=== PATIENT | male | born 1975 | race Caucasian/White ===

== ENCOUNTER 2018-09-28 18:00 | Emergency (ER) | payer OTHER ==
[2018-09-28] MEDS ORDERED: methylPREDNISolone SOD SUCCI 125 MG/2 ML VIAL IM ONE (20:09)
--- NOTE | 2018-09-28 20:28 | ED ---
Skin/Abscess/FB HPI - General Chief complaint: Skin/Abscess/Foreign Body Stated complaint: Wounds on Wrist Time Seen by Provider: 09/28/18 19:43 Source: patient Mode of arrival: ambulatory Limitations: no limitations - History of Present Illness Initial comments: Patient is a 42-year-old male presents to the emergency department with rashes on both of his lower arms 3 days. Patient states he had similar rash for about 2 weeks, the rash improved for a few days and then returned 3 days ago. He describes the rash as "red, itchy, and with sores that are oozing." Patient works doing oil changes and often uses a hand scrub that he recently found out contained peanuts which she is ALLERGIC to. Patient cannot think of anything else that could be caused the rash. Patient denies any other symptoms. - Related Data Previous Rx's Medication Instructions Recorded Cephalexin [Keflex] 500 mg PO Q6HR 7 Days #28 cap 09/28/18 methylPREDNISolone [Medrol Dose 4 mg PO DIRECTED #1 pack 09/28/18 Pack] Allergies Allergy/AdvReac Type Severity Reaction Status Date / Time No Known Allergies Allergy Verified 09/28/18 18:28 Review of Systems ROS Statement: Those systems with pertinent positive or pertinent negative responses have been documented in the HPI. ROS Other: All systems not noted in ROS Statement are negative. Past Medical History Past Medical History: No Reported History History of Any Multi-Drug Resistant Organisms: None Reported Past Surgical History: Orthopedic Surgery Past Psychological History: No Psychological Hx Reported Smoking Status: Current every day smoker Past Alcohol Use History: Occasional Past Drug Use History: None Reported General Exam - General Exam Comments Initial Comments: GENERAL: Well-appearing, well-nourished and in no acute distress. HEAD: Atraumatic, normocephalic. EYES: Pupils equal round and reactive to light, extraocular movements intact, sclera anicteric, conjunctiva are normal. ENT: TMs normal, nares patent, oropharynx clear without exudates. Moist mucous membranes. NECK: Normal range of motion, supple without lymphadenopathy or JVD. LUNGS: Breath sounds clear to auscultation bilaterally and equal. No wheezes rales or rhonchi. HEART: Regular rate and rhythm without murmurs, rubs or gallops. ABDOMEN: Soft, nontender, normoactive bowel sounds. No guarding, no rebound. No masses appreciated. : Deferred EXTREMITIES: Normal range of motion, no pitting or edema. No clubbing or cyanosis. NEUROLOGICAL: Cranial nerves II through XII grossly intact. Normal speech, normal gait. PSYCH: Normal mood, normal affect. SKIN: There is a erythematous, scaly rash on both lower arms that is oozing fluid from the wrist up to the elbow area, bilateral. No pain with palpitation. Limitations: no limitations Course Vital Signs 09/28/18 09/28/18 18:25 20:45 Temperature 98.2 F 97.6 F Pulse Rate 95 92 Respiratory 18 16 Rate Blood Pressure 166/91 151/97 O2 Sat by Pulse 98 99 Oximetry Medical Decision Making - Medical Decision Making Patient is a 42-year-old male presenting with bilateral lower arm rashes 3 days. Describes the rash as very itchy and red with oozing sores. Patient states he's never had a rash this bad before. Patient states there is a hand scrub at work that contains peanuts which she is ALLERGIC to. On exam both his lower arms from the wrist to the elbow is erythematous, scaly rash with oozing sores consistent with cellulitis from possible ALLERGIC reaction/dermatitis. Patient denies any fevers. Patient will be started on antibiotics and steroid treatment. Case discussed with Dr. Chapin. Patient will be discharged home after steroid injection. Disposition Clinical Impression: Contact dermatitis, Cellulitis Disposition: HOME SELF-CARE Condition: Stable Instructions (If sedation given, give patient instructions): Cellulitis (ED), Acute Rash (ED) Additional Instructions: Please return to the Emergency Department if symptoms worsen or any other concerns. Start steroid tomorrow. Start antibiotics tonight. Follow-up with PCP and 1-3 days if rash continues. Prescriptions: Cephalexin [Keflex] 500 mg PO Q6HR 7 Days #28 cap methylPREDNISolone [Medrol Dose Pack] 4 mg PO DIRECTED #1 pack Is patient prescribed a controlled substance at d/c from ED?: No Referrals: None,Stated [Primary Care Provider] - 1-2 days
[2018-09-28 20:49] VITALS: BP 151/97; PULSE 92; RESP 16; TEMP 97.6
== END 2018-09-28 20:52 | disposition home or self-care (01) ==
LOC: EC 18:00
DX: L25.4 Unspecified contact dermatitis due to food in contact with skin (principal); L03.114 Cellulitis of left upper limb; L03.113 Cellulitis of right upper limb; F17.200 Nicotine dependence, unspecified, uncomplicated; Z91.010 Allergy to peanuts
CPT/HCPCS: 99282; 96372; J2930

== ENCOUNTER 2018-11-09 09:19 | Emergency (ER) | payer OTHER ==
[2018-11-09 09:31] VITALS: RESP 18
[2018-11-09] MEDS ORDERED: SODIUM CHLORIDE 0.9% 1,000 ML IV STA (09:43)
[2018-11-09] MEDS ORDERED: SODIUM CHLORIDE 0.9% 500 ML 500 ML IV STA (09:43)
[2018-11-09 10:23] LABS: Basophils % (A) 1 %; Eosinophils # (A) 0.1 k/uL (0-0.7); Eosinophils % (A) 2 %; HCT 45.5 % (39.0-53.0); HGB 14.9 gm/dL (13.0-17.5); Lymphocytes # (A) 1.3 k/uL (1.0-4.8); Lymphocytes % (A) 30 %; MCH 31.5 pg (25.0-35.0); MCHC 32.7 g/dL (31.0-37.0); MCV 96.3 fL (80.0-100.0); Mean Platelet Volume 8.4; Monocytes # (A) 0.4 k/uL (0-1.0); Monocytes % (A) 8 %; Neutrophils # (A) 2.3 k/uL (1.3-7.7); Neutrophils % (A) 55 %; Platelet Count 144 k/uL (150-450); RBC 4.72 m/uL (4.30-5.90); WBC 4.2 k/uL (3.8-10.6)
--- NOTE | 2018-11-09 10:23 | CT ---
EXAMINATION TYPE: CT brain wo con DATE OF EXAM: 11/09/2018 COMPARISON: None HISTORY: Dizziness with history of prior CVA. CT DLP: 1123.[address] of the brain was performed. The ventricles, basal cisterns and sulci overlying the cerebral convexities demonstrate a normal appe arance. There is no evidence for intracranial hemorrhage or sulcal effacement. No mass effects are seen. Osseous calvarium is intact. If symptoms persist consider MRI as clinically warranted. IMPRESSION: 1. No acute intracranial process is seen at this time.
--- NOTE | 2018-11-09 10:28 | XR ---
EXAMINATION TYPE: XR chest 2V DATE OF EXAM: 11/09/2018 COMPARISON: None HISTORY: Chest pain TECHNIQUE: Frontal and lateral views of the chest are obtained. FINDINGS: There is no focal air space opacity. No evidence for pneumothorax. No pleural effusion. The cardiac silhouette size is within normal limits. The osseous structures are grossly intact. IMPRESSION: 1. No acute cardiopulmonary process.
[2018-11-09 10:34] LABS: INR 0.8 (<1.2); Prothrombin Time 9.4 sec (9.0-12.0)
[2018-11-09 10:39] LABS: ALT 23 U/L (21-72); AST 36 U/L (17-59); African American GFR (CKD) >90 (>60 ml/min/1.73 sqM); Albumin 4.5 g/dL (3.5-5.0); Alkaline Phosphatase 58 U/L (38-126); Anion Gap 10 mmol/L; Blood Urea Nitrogen 8 mg/dL (9-20); Calcium 8.9 mg/dL (8.4-10.2); Carbon Dioxide 23 mmol/L (22-30); Chloride 105 mmol/L (98-107); Glucose 243 mg/dL (74-99); Potassium 4.9 mmol/L (3.5-5.1); Sodium 138 mmol/L (137-145); Total Bilirubin 0.2 mg/dL (0.2-1.3); Total Protein 7.2 g/dL (6.3-8.2)
[2018-11-09 12:11] LABS: Appearance,Urine Clear (Clear); Bilirubin,Urine Negative (Negative); Blood,Urine Negative (Negative); Color,Urine Yellow; Glucose,Urine (UA) 3+ (Negative); Ketones,Urine Negative (Negative); Leukocyte Esterase,Urine Negative (Negative); Nitrite,Urine Negative (Negative); Protein,Urine Negative (Negative); Specific Gravity,Urine 1.008 (1.001-1.035); Urobilinogen,Urine <2.0 mg/dL (<2.0)
[2018-11-09 12:21] LABS: Amphetamine Screen,Urine Not Detected (NotDetected); Barbiturate Screen,Urine Not Detected (NotDetected); Benzodiazepines Screen,Urine Not Detected (NotDetected); Cocaine Screen,Urine Not Detected (NotDetected); Methadone Screen, Urine Not Detected (NotDetected); Opiate Screen,Urine Not Detected (NotDetected); Oxycodone Screen, Urine Not Detected (NotDetected); Phencyclidine Screen,Urine Not Detected (NotDetected); Tricyclic Antidepressant,Urine Not Detected (NotDetected); Urn Cannabinoid Scrn Not Detected (NotDetected)
[2018-11-09 12:58] VITALS: PULSE 78
[2018-11-09] MEDS ORDERED: amLODIPine 5 MG TAB PO STA (13:17)
--- NOTE | 2018-11-09 13:20 | ED ---
General Adult HPI - General Chief complaint: Dizziness Stated complaint: Dizziness Time Seen by Provider: 11/09/18 09:41 Source: patient, EMS Mode of arrival: EMS Limitations: no limitations - History of Present Illness Initial comments: 42-year-old male presenting for lightheaded when standing. Patient states that he's been drinking for the past day. Patient states he is lightheaded when he stands. He states this has been ongoing on and off for the past week. Patient doesn't chest painshortness of breath, leg swelling, hemoptysis. Denies any m colin hematochezia or diarrhea. Patient denies vomiting abdominal pain headache. Patient denies any neck stiffness visual changes. Patient has no other complaints. Patient states that he does work in warm conditions. Is not sure if this is associated. Patient states he has been drinking water. Upon arrival patient's blood pressures elevated he states he does have a history but does not take his medications he has no primary care provider. Patient states he used to take metformin for diabetes but has not had prescriptions for this to loss of insurance. Remaining review of systems negative on arrival patient appears well signs of acute distress. Severity scale (1-10): 4 - Related Data Previous Rx's Medication Instructions Recorded Cephalexin [Keflex] 500 mg PO Q6HR 7 Days #28 cap 09/28/18 methylPREDNISolone [Medrol Dose 4 mg PO DIRECTED #1 pack 09/28/18 Pack] metFORMIN HCL [Glucophage Xr] 500 mg PO DAILY 14 Days #14 tab 11/09/18 Allergies Allergy/AdvReac Type Severity Reaction Status Date / Time No Known Allergies Allergy Verified 11/09/18 09:32 Review of Systems ROS Statement: Those systems with pertinent positive or pertinent negative responses have been documented in the HPI. ROS Other: All systems not noted in ROS Statement are negative. Past Medical History Past Medical History: CVA/TIA, Diabetes Mellitus History of Any Multi-Drug Resistant Organisms: None Reported Past Surgical History: Orthopedic Surgery Additional Past Surgical History / Comment(s): right hand, left knee Past Psychological History: No Psychological Hx Reported Smoking Status: Current every day smoker Past Alcohol Use History: Occasional Past Drug Use History: None Reported General Exam - General Exam Comments Initial Comments: General: The patient is awake and alert, in no distress, and does not appear acutely ill. Eye: +3 mm pupils are equal, round and reactive to light, extra-ocular m ovements are intact. No nystagmus. There is normal conjunctiva bilaterally. No signs of icterus. Ears, nose, mouth and throat: There are moist mucous membranes and no oral lesions. Neck: The neck is supple, there is no tenderness or JVD. Cardiovascular: There is a regular rate and rhythm. No murmur, rub or gallop is appreciated. Respiratory: Lungs are clear to auscultation, respirations are non-labored, breath sounds are equal. No wheezes, stridor, rales, or rhonchi. Gastrointestinal: Soft, non-distended, non-tender abdomen without masses or organomegaly noted. There is no rebound or guarding present. No CVA tenderness. Bowel sounds are unremarkable. Musculoskeletal: Normal ROM, no tenderness. Strength 5/5. Sensation intact. Radial and DP pulses equal bilaterally 2+. Neurological: A&O x 3. CN II-XII intact,memory intact to immediately, intermediate and termite technician recall. Able to follow simple verbal. Able to name a common object (pen). High quality, labial (pa) and lingual (la) speech. Low q uality posterior pharynx/larynx (ga) voice sounds. Able to express general knowledge (days in a week). No hemineglect or inattention noted. Finger agnosia (-) and spatially oriented (identified L index finger touched R shoulder with L index finger). Light touch and temperature sensation present over the face, chest, abdomen, back, UE bilaterally, and LE bilaterally. Able to localize point during point localization b/l and extinction. No visible bulk atrophy, hypertrophy, fasciculations, or myoclonus of the UE or LE b/l. Full PROM in UE and LE b/l. Bilateral muscle strength 5/5 for the following muscles: deltoid, biceps, triceps, brachioradialis, wrist extensors/flexor, hip flexor, hip abduc tors/adductors, hamstrings, quadriceps, feet dorsiflexors/plantar flexors. Finger to nose, finger to the examiners finger, and heel to cummins coordinated and accurate b/l. Coordinated and even demonstration of hand flip, finger to thumb, and toe tap b/l.Gait is coordinated and even in stride with tandem, toe and heel walk. Maintains balance with monopedal stance. (-) Romberg. (-) pronator drift. No nuchal rigidity. (-) Brudzinskis and Kernig signs . Skin: Skin is warm and dry and no rashes or lesions are noted. (-) Homans. No LE edema or pain to palpatin. Psychiatric: Cooperative, appropriate mood & affect, normal judgment. Limitations: no limitations Course Vital Signs 11/09/18 11/09/18 11/09/18 09:22 09:36 11:51 Temperature 97.2 F L 98.7 F Pulse Rate 96 Pulse Rate [ 98 Hospitality Specialist ] Pulse Rate [ 94 79 Sitting Hospitality Specialist] Pulse Rate [ 115 H 79 Standing Hospitality Specialist ] Pulse Rate [ 86 Supine Hospitality Specialist] Respiratory 18 18 Rate Blood Pressure 166/103 Blood Pressure 149/98 [Sitting] Blood Pressure 143/98 145/85 [Standing] Blood Pressure 143/90 [Supine] O2 Sat by Pulse 98 Oximetry 11/09/18 11/09/18 11/09/18 12:00 12:56 14:02 Temperature 97.4 F L 97.5 F L 97.6 F Pulse Rate 78 78 Pulse Rate [ Hospitality Specialist ] Pulse Rate [ Sitting Hospitality Specialist] Pulse Rate [ 86 78 Standing Hospitality Specialist ] Pulse Rate [ Supine Hospitality Specialist] Respiratory 18 18 18 Rate Blood Pressure 149/101 143/87 Blood Pressure [Sitting] Blood Pressure [Standing] Blood Pressure 144/81 149/101 [Supine] O2 Sat by Pulse 96 Oximetry EKG Findings - EKG Comments: EKG Findings:: A 12-lead EKG was performed and shows the following: Rate is 93bpm, and rhythm is normal sinus. There are normal QRS complexes and normal R- wave progression. ST segments have no elevation or depression, and WV segments appear normal. WV interval 154 ms, QRS duration 90 ms, QT/QTC 366/[address] elevation or depression. Medical Decision Making - Medical Decision Making Very well apppearing 42-year-old male presenting for lightheadedness with standing. Positive orthostatics increase of heart rate of 90 bpm from sitting to standing. Patient is intoxicated alcohol of 0.93. Smells of alcohol. Patient is given IV fluids. Patient's lactate elevated feels is secondary to dehydration. Patient's lips appear dry. EKG no acute findings consistent with acute coronary syndrome. Troponin negative. Chest x-ray within normal limits. Lungs clear to auscultation no lower extremity swelling. Patient has no focal neurological deficits. Patient is no ataxia. Patient states that is lightheaded is not a dizziness. No dizziness with ranging of the head. No nuchal irritation signs. CT was obtained and patient history of previous cer ebral stroke. Negative for acute process. Patient denies chest pain or shortness of breath. Patient states his improvement of symptoms with IV fluids. At this time provided patient for metformin as it had a previous prescription for 500 mg by mouth daily. He states he has not had any prescriptions for the pressure but has had elevations in the past. I did give patient a resource for free [facility] for [facility] of chronic health issues. Gastric is my attending provider Dr. Elaine is agreeable to plan discharge at this time. Return parameters were discussed with patient prior to discharge. - Lab Data Result diagrams: 11/09/18 09:30 11/09/18 09:30 Lab Results 11/09/18 11/09/18 11/09/18 Range/Units 09:30 09:30 09:30 WBC 4.2 (3.8-10.6) k/uL RBC 4.72 (4.30-5.90) m/uL Hgb 14.9 (13.0-17.5) gm/dL Hct 45.5 (39.0-53.0) % MCV 96.3 (80.0-100.0) fL MCH 31.5 (25.0-35.0) pg MCHC 32.7 (31.0-37.0) g/dL RDW 15.0 (11.5-15.5) % Plt Count 144 L (150-450) k/uL Neutrophils % 55 % Lymphocytes % 30 % Monocytes % 8 % Eosinophils % 2 % Basophils % 1 % Neutrophils # 2.3 (1.3-7.7) k/uL Lymphocytes # 1.3 (1.0-4.8) k/uL Monocytes # 0.4 (0-1.0) k/uL Eosinophils # 0.1 (0-0.7) k/uL Basophils # 0.0 (0-0.2) k/uL PT 9.4 (9.0-12.0) sec INR 0.8 (<1.2) Sodium 138 (137-145) mmol/L Potassium 4.9 (3.5-5.1) mmol/L Chloride 105 (98-107) mmol/L Carbon Dioxide 23 (22-30) mmol/L Anion Gap 10 mmol/L BUN 8 L (9-20) mg/dL Creatinine 0.64 L (0.66-1.25) mg/dL Est GFR (CKD-EPI)AfAm >90 (>60 ml/min/1.73 sqM) Est GFR (CKD-EPI)NonAf >90 (>60 ml/min/1.73 sqM) Glucose 243 H (74-99) mg/dL Lactic Ac Sepsis Rflx Plasma Lactic Acid Kenneth (0.7-2.0) mmol/L Calcium 8.9 (8.4-10.2) mg/dL Total Bilirubin 0.2 (0.2-1.3) mg/dL AST 36 (17-59) U/L ALT 23 (21-72) U/L Alkaline Phosphatase 58 (38-126) U/L Troponin I (0.000-0.034) ng/mL Total Protein 7.2 (6.3-8.2) g/dL Albumin 4.5 (3.5-5.0) g/dL Urine Color Urine Appearance (Clear) Urine pH (5.0-8.0) Ur Specific [place] (1.001-1.035) Urine Protein (Negative) Urine Glucose (UA) (Negative) Urine Ketones (Negative) Urine Blood (Negative) Urine Nitrite (Negative) Urine Bilirubin (Negative) Urine Urobilinogen (<2.0) mg/dL Ur Leukocyte Esterase (Negative) Urine Opiates Screen (NotDetected) Ur Oxycodone Screen (NotDetected) Urine Methadone Screen (NotDetected) Ur Propoxyphene Screen (NotDetected) Ur Barbiturates Screen (NotDetected) U Tricyclic Antidepress (NotDetected) Ur Phencyclidine Scrn (NotDetected) Ur Amphetamines Screen (NotDetected) U Methamphetamines Scrn (NotDetected) U Benzodiazepines Scrn (NotDetected) Urine Cocaine Screen (NotDetected) U Marijuana (THC) Screen (NotDetected) Serum Alcohol mg/dL 11/09/18 11/09/18 11/09/18 Range/Units 09:30 09:30 10:37 WBC (3.8-10.6) k/uL RBC (4.30-5.90) m/uL Hgb (13.0-17.5) gm/dL Hct (39.0-53.0) % MCV (80.0-100.0) fL MCH (25.0-35.0) pg MCHC (31.0-37.0) g/dL RDW (11.5-15.5) % Plt Count (150-450) k/uL Neutrophils % % Lymphocytes % % Monocytes % % Eosinophils % % Basophils % % Neutrophils # (1.3-7.7) k/uL Lymphocytes # (1.0-4.8) k/uL Monocytes # (0-1.0) k/uL Eosinophils # (0-0.7) k/uL Basophils # (0-0.2) k/uL PT (9.0-12.0) sec INR (<1.2) Sodium (137-145) mmol/L Potassium (3.5-5.1) mmol/L Chloride (98-107) mmol/L Carbon Dioxide (22-30) mmol/L Anion Gap mmol/L BUN (9-20) mg/dL Creatinine (0.66-1.25) mg/dL Est GFR (CKD-EPI)AfAm (>60 ml/min/1.73 sqM) Est GFR (CKD-EPI)NonAf (>60 ml/min/1.73 sqM) Glucose (74-99) mg/dL Lactic Ac Sepsis Rflx Y Plasma Lactic Acid Kenneth 2.1 H* (0.7-2.0) mmol/L Calcium (8.4-10.2) mg/dL Total Bilirubin (0.2-1.3) mg/dL AST (17-59) U/L ALT (21-72) U/L Alkaline Phosphatase (38-126) U/L Troponin I <0.012 (0.000-0.034) ng/mL Total Protein (6.3-8.2) g/dL Albumin (3.5-5.0) g/dL Urine Color Urine Appearance (Clear) Urine pH (5.0-8.0) Ur Specific [place] (1.001-1.035) Urine Protein (Negative) Urine Glucose (UA) (Negative) Urine Ketones (Negative) Urine Blood (Negative) Urine Nitrite (Negative) Urine Bilirubin (Negative) Urine Urobilinogen (<2.0) mg/dL Ur Leukocyte Esterase (Negative) Urine Opiates Screen (NotDetected) Ur Oxycodone Screen (NotDetected) Urine Methadone Screen (NotDetected) Ur Propoxyphene Screen (NotDetected) Ur Barbiturates Screen (NotDetected) U Tricyclic Antidepress (NotDetected) Ur Phencyclidine Scrn (NotDetected) Ur Amphetamines Screen (NotDetected) U Methamphetamines Scrn (NotDetected) U Benzodiazepines Scrn (NotDetected) Urine Cocaine Screen (NotDetected) U Marijuana (THC) Screen (NotDetected) Serum Alcohol mg/dL 11/09/18 11/09/18 Range/Units 11:55 11:55 WBC (3.8-10.6) k/uL RBC (4.30-5.90) m/uL Hgb (13.0-17.5) gm/dL Hct (39.0-53.0) % MCV (80.0-100.0) fL MCH (25.0-35.0) pg MCHC (31.0-37.0) g/dL RDW (11.5-15.5) % Plt Count (150-450) k/uL Neutrophils % % Lymphocytes % % Monocytes % % Eosinophils % % Basophils % % Neutrophils # (1.3-7.7) k/uL Lymphocytes # (1.0-4.8) k/uL Monocytes # (0-1.0) k/uL Eosinophils # (0-0.7) k/uL Basophils # (0-0.2) k/uL PT (9.0-12.0) sec INR (<1.2) Sodium (137-145) mmol/L Potassium (3.5-5.1) mmol/L Chloride (98-107) mmol/L Carbon Dioxide (22-30) mmol/L Anion Gap mmol/L BUN (9-20) mg/dL Creatinine (0.66-1.25) mg/dL Est GFR (CKD-EPI)AfAm (>60 ml/min/1.73 sqM) Est GFR (CKD-EPI)NonAf (>60 ml/min/1.73 sqM) Glucose (74-99) mg/dL Lactic Ac Sepsis Rflx Plasma Lactic Acid Kenneth (0.7-2.0) mmol/L Calcium (8.4-10.2) mg/dL Total Bilirubin (0.2-1.3) mg/dL AST (17-59) U/L ALT (21-72) U/L Alkaline Phosphatase (38-126) U/L Troponin I (0.000-0.034) ng/mL Total Protein (6.3-8.2) g/dL Albumin (3.5-5.0) g/dL Urine Color Yellow Urine Appearance Clear (Clear) Urine pH 5.0 (5.0-8.0) Ur Specific [place] 1.008 (1.001-1.035) Urine Protein Negative (Negative) Urine Glucose (UA) 3+ H (Negative) Urine Ketones Negative (Negative) Urine Blood Negative (Negative) Urine Nitrite Negative (Negative) Urine Bilirubin Negative (Negative) Urine Urobilinogen <2.0 (<2.0) mg/dL Ur Leukocyte Esterase Negative (Negative) Urine Opiates Screen Not Detected (NotDetected) Ur Oxycodone Screen Not Detected (NotDetected) Urine Methadone Screen Not Detected (NotDetected) Ur Propoxyphene Screen Not Detected (NotDetected) Ur Barbiturates Screen Not Detected (NotDetected) U Tricyclic Antidepress Not Detected (NotDetected) Ur Phencyclidine Scrn Not Detected (NotDetected) Ur Amphetamines Screen Not Detected (NotDetected) U Methamphetamines Scrn Not Detected (NotDetected) U Benzodiazepines Scrn Not Detected (NotDetected) Urine Cocaine Screen Not Detected (NotDetected) U Marijuana (THC) Screen Not Detected (NotDetected) Serum Alcohol 93 mg/dL Disposition Clinical Impression: Light-headed feeling, Orthostatic lightheadedness, Dehydration, Alcohol intoxication, Hypertension, Hx of diabetes mellitus Disposition: HOME SELF-CARE Condition: Good Instructions (If sedation given, give patient instructions): Dehydration (ED) Additional Instructions: Please use medication as discussed. Please follow-up with family doctor in the next 2 days. Please return to emergency room if the symptoms increase or worsen or for any other concerns. Prescriptions: metFORMIN HCL [Glucophage Xr] 500 mg PO DAILY 14 Days #14 tab Is patient prescribed a controlled substance at d/c from ED?: No Referrals: None,Stated [Primary Care Provider] - 1-2 days [facility] [NON-STAFF] - 1-2 days Time of Disposition: 13:19
[2018-11-09 14:03] VITALS: BP 143/87; TEMP 97.6
== END 2018-11-09 14:02 | disposition home or self-care (01) ==
LOC: EC 09:19
DX: E86.0 Dehydration (principal); F10.129 Alcohol abuse with intoxication, unspecified; I10 Essential (primary) hypertension; E11.9 Type 2 diabetes mellitus without complications; Z86.73 Personal history of transient ischemic attack (TIA), and cerebral infarction without residual deficits; F17.200 Nicotine dependence, unspecified, uncomplicated; Z53.8 Procedure and treatment not carried out for other reasons
CPT/HCPCS: 36415; 70450; 71046; 80053; 80306; 80320; 81003; 83605; 84484; 85025; 85610; 93005; 96360; 96361; 99285

== ENCOUNTER 2018-11-16 14:48 | Emergency (ER) | payer OTHER ==
[2018-11-16 15:06] VITALS: RESP 18
--- NOTE | 2018-11-16 16:20 | ED ---
General Adult HPI - General Chief complaint: Extremity Injury, Upper Stated complaint: rt wrist injury Time Seen by Provider: 11/16/18 15:09 Source: patient, RN notes reviewed, old records reviewed Mode of arrival: ambulatory Limitations: no limitations - History of Present Illness Initial comments: Is a 42-year-old male who presents emergency department today upon awakening yesterday after taking a nap. He complains of unable to extend his right wrist. He is right-handed. He also complains of decreased blind aide strength. Patient reports that he has had no significant fall or trauma. He denies any pain to the wrist or arm. She states that it's unable to move her he normally would. Patient reports that he has no other complaints. Denies any headache or other deficits. Patient states that it seemed like he slept on his arm wrong and woke up with the symptoms. Patient denies any recent fever, chills, shortness of breath, chest pain, back pain, abdominal pain, nausea vomiting, numbness or tingling, dysuria or hematuria, constipation or diarrhea, headaches or visual changes, or any other current symptoms - Related Data Previous Rx's Medication Instructions Recorded Cephalexin [Keflex] 500 mg PO Q6HR 7 Days #28 cap 09/28/18 methylPREDNISolone [Medrol Dose 4 mg PO DIRECTED #1 pack 09/28/18 Pack] metFORMIN HCL [Glucophage Xr] 500 mg PO DAILY 14 Days #14 tab 11/09/18 Dexamethasone 0.75 mg PO DAILY #12 tab 11/16/18 Ibuprofen 600 mg PO TID #20 tablet 11/16/18 Allergies Allergy/AdvReac Type Severity Reaction Status Date / Time No Known Allergies Allergy Verified 11/09/18 09:32 Review of Systems ROS Statement: Those systems with pertinent positive or pertinent negative responses have been documented in the HPI. ROS Other: All systems not noted in ROS Statement are negative. Past Medical History Past Medical History: CVA/TIA, Diabetes Mellitus History of Any Multi-Drug Resistant Organisms: None Reported Past Surgical History: Orthopedic Surgery Additional Past Surgical History / Comment(s): right hand, left knee Past Psychological History: No Psychological Hx Reported Smoking Status: Current every day smoker Past Alcohol Use History: Occasional Past Drug Use History: None Reported General Exam - General Exam Comments Initial Comments: Well-appearing 42-year-old male. No significant distress. Limitations: no limitations General appearance: alert, in no apparent distress Head exam: Present: atraumatic, normocephalic, normal inspection Eye exam: Present: normal appearance, PERRL, EOMI. Absent: scleral icterus, conjunctival injection, periorbital swelling ENT exam: Present: normal exam, mucous membranes moist Neck exam: Present: normal inspection. Absent: tenderness, meningismus, lymphadenopathy Respiratory exam: Present: normal lung sounds bilaterally Cardiovascular Exam: Present: regular rate, normal rhythm, normal heart sounds. Absent: systolic murmur, diastolic murmur, rubs, gallop, clicks Right Elbow exam: Present: normal inspection, full ROM Forearm Wrist exam: Present: normal inspection, other (Patient has evidence of right wrist drop. Decreased blind aide strength of 3 out of 5. Patient is unable to extend) Neuro motor exam: Present: thumb opposition intact, thumb IP flexion intact, thumb adduction intact. Absent: wrist extension intact Neurosensory exam: Absent: radial nerve intact (evidence of wrist drop. Concern for radial nerve palsy) Vascular: Present: normal capillary refill Back exam: Present: normal inspection Neurological exam: Present: alert, oriented X3, CN II-XII intact Psychiatric exam: Present: normal affect, normal mood Skin exam: Present: warm, dry, intact, normal color. Absent: rash Course Vital Signs 11/16/18 11/16/18 15:02 16:48 Temperature 97.9 F 97.5 F L Pulse Rate 88 82 Respiratory 18 18 Rate Blood Pressure 148/97 139/98 O2 Sat by Pulse 97 96 Oximetry Procedures - Orthopedic Splinting/Casting Injury #1 Side: right Upper Extremity Injury Location: wrist Upper Extremity Immobilizer: volar splint Lower Extremity Immobilizer: Abelino wrap, synthetic pre-padded splint Medical Decision Making - Medical Decision Making Is a 42-year-old male presents returned today with right wrist drop after waking up. Of concern for radial nerve palsy. I asked the Patient if he had a history of alcohol intoxication or reason for when he slept for his arm to be in an awkward position. I discussed this is consistent with sleeping wrong or "Monday night palsy. Patient was placed in a wrist cock-up splint. He is able to feel sensation over his fingertips and has normal capillary refill and pulses. He is advised that he is follow-up with orthopedic. We'll put the Patient on steroids and temperature medication for nerve inflammation. I discussed following up with orthosis and discussed the case with Dr. Gaona. All questions were answered. Disposition Clinical Impression: Acute radial nerve palsy of right upper extremity Disposition: HOME SELF-CARE Condition: Good Instructions (If sedation given, give patient instructions): Radial Nerve Palsy (ED) Additional Instructions: Patient advised to have close follow-up with meeting specialist. Remain in the splint with close follow-up with primary care doctor as well. Patient take anti-inflammatory medication and steroids as prescribed. Prescriptions: Dexamethasone 0.75 mg PO DAILY #12 tab Ibuprofen 600 mg PO TID #20 tablet Is patient prescribed a controlled substance at d/c from ED?: No Referrals: None,Stated [Primary Care Provider] - 1-2 days Marin Metcalf DO [Doctor of Osteopathic Medicine] - 1-2 days Time of Disposition: 16:18
[2018-11-16 16:49] VITALS: BP 139/98; PULSE 82; TEMP 97.5
== END 2018-11-16 16:49 | disposition home or self-care (01) ==
LOC: EC 14:48
DX: G56.31 Lesion of radial nerve, right upper limb (principal); F17.200 Nicotine dependence, unspecified, uncomplicated; Z86.73 Personal history of transient ischemic attack (TIA), and cerebral infarction without residual deficits
CPT/HCPCS: 29125; 99283

== ENCOUNTER 2019-02-26 17:28 | Emergency (ER) | payer OTHER ==
[2019-02-26 17:41] VITALS: BP 150/105; TEMP 97.9
[2019-02-26] MEDS ORDERED: IPRATROPIUM-ALBUTEROL 3 ML NEB INHALATION STA (18:29)
[2019-02-26] MEDS ORDERED: predniSONE 20 MG TAB PO STA (18:30)
[2019-02-26] MEDS ORDERED: DOXYCYCLINE 100 MG CAP PO STA (18:31)
--- NOTE | 2019-02-26 18:37 | ED ---
General Adult HPI - General Source: patient Mode of arrival: ambulatory Limitations: no limitations <Slick Lazcano - Last Filed: 02/26/19 19:39> <Criselda Stoll - Last Filed: 03/01/19 01:12> - General Chief complaint: Upper Respiratory Infection Stated complaint: URI, vomiting Time Seen by Provider: 02/26/19 18:09 - History of Present Illness Initial comments: Patient is a 43-year-old male with history of asthma and type 2 diabetes is presenting to the emergency department with a chief complaint of a cough. Patient reports symptoms started about 4 days ago with a sore throat, sinus congestion and a cough. Patient reports he has developed a productive cough with green sputum production. Patient states that he is also wheezing. Patient does report fevers but no actual obtain his temperature. Patient states he has never been officially diagnosed with COPD but he believes he has it. Patient does not have a primary care. Patient reports he used an albuterol nebulizer treatment with minimal improvement. Patient is a lifelong smoker. Patient also reports 3 episodes of vomiting after severe coughing fits. Patient reports chest rotation after prolonged coughing fits. Patient denies any headaches, blurry vision, one-sided lower extremity swelling or calf tenderness. Patient denies any abdominal or back pain. (Slick Lazcano) - Related Data Previous Rx's Medication Instructions Recorded Cephalexin [Keflex] 500 mg PO Q6HR 7 Days #28 cap 09/28/18 methylPREDNISolone [Medrol Dose 4 mg PO DIRECTED #1 pack 09/28/18 Pack] metFORMIN HCL [Glucophage Xr] 500 mg PO DAILY 14 Days #14 tab 11/09/18 Dexamethasone 0.75 mg PO DAILY #12 tab 11/16/18 Ibuprofen 600 mg PO TID #20 tablet 11/16/18 Albuterol Inhaler [Ventolin Hfa 1 - 2 puff INHALATION RT-Q6H PRN 02/26/19 Inhaler] #1 inhaler Doxycycline Monohydrate [Monodox] 100 mg PO Q12HR #20 cap 02/26/19 predniSONE 50 mg PO DAILY #5 tab 02/26/19 Allergies Allergy/AdvReac Type Severity Reaction Status Date / Time No Known Allergies Allergy Verified 02/26/19 17:40 Review of Systems ROS Other: All systems not noted in ROS Statement are negative. <Slick Lazcano - Last Filed: 02/26/19 19:39> ROS Other: All systems not noted in ROS Statement are negative. <Criselda Stoll - Last Filed: 03/01/19 01:12> ROS Statement: Those systems with pertinent positive or pertinent negative responses have been documented in the HPI. Past Medical History Past Medical History: CVA/TIA, Diabetes Mellitus, Hypertension History of Any Multi-Drug Resistant Organisms: None Reported Past Surgical History: Orthopedic Surgery Additional Past Surgical History / Comment(s): right hand, left knee Past Psychological History: No Psychological Hx Reported Smoking Status: Current every day smoker Past Alcohol Use History: Occasional Past Drug Use History: None Reported <Slick Lazcano - Last Filed: 02/26/19 19:39> General Exam Limitations: no limitations General appearance: alert, in no apparent distress Head exam: Present: atraumatic, normocephalic, normal inspection Eye exam: Present: normal appearance, PERRL, EOMI Pupils: Present: normal accommodation ENT exam: Present: normal exam, normal oropharynx (Bilateral enlarged tonsils with erythema but no exudates), mucous membranes moist, TM's normal bilaterally, normal external ear exam Neck exam: Present: normal inspection, full ROM, lymphadenopathy (Anterior cervical). Absent: tenderness Respiratory exam: Present: wheezes (Mild wheezing bilaterally) Cardiovascular Exam: Present: regular rate, normal rhythm, normal heart sounds GI/Abdominal exam: Present: soft. Absent: tenderness, guarding, rebound Extremities exam: Present: normal inspection, full ROM Back exam: Present: normal inspection, full ROM Neurological exam: Present: alert, oriented X3 Psychiatric exam: Present: normal affect, normal mood Skin exam: Present: warm, intact, normal color <Slick Lazcano - Last Filed: 02/26/19 19:39> Course Vital Signs 02/26/19 02/26/19 02/26/19 17:37 19:07 19:16 Temperature 97.9 F Pulse Rate 105 H 97 98 Respiratory 22 16 16 Rate Blood Pressure 150/105 O2 Sat by Pulse 99 Oximetry Medical Decision Making <Slick Lazcano - Last Filed: 02/26/19 19:39> <Criselda Stoll - Last Filed: 03/01/19 01:12> - Medical Decision Making Patient is a 43-year-old male with history of type 2 diabetes, asthma is presenting to the emergency department with a chief complaint of a cough. Physical examination is indicative of bilateral wheezing which appears to have been going on for about 4 days. Rest of exam is unremarkable. Chest x-ray is negative. Patient given a breathing treatment. On reevaluation patient reports improvement of symptoms. Considering the patient has diabetes and potentially COPD from the chronic smoking. I suspect the patient has bronchitis. Patient also given prednisone here and will be discharged with a 5 day course of prednisone. Patient refuses Rocephin. Strict return parameters were thoroughly discussed with patient was understanding and agreeable. I counseled the patient for smoking cessation for greater than 3 minutes. Case discussed physician. (Slick Lazcano) I was available for consultation in the emergency department. The history and physical exam were done by the midlevel provider. I was consulted for this patients care. I reviewed the case with the midlevel provider and based on their presentation of the patient, I agree with the assessment, medical decision making and plan of care as documented. Chart was dictated using tracx dictation software. Attempts were made to correct any dictation errors however some typographical errors may persist. (Criselda Stoll) Disposition Is patient prescribed a controlled substance at d/c from ED?: No Time of Disposition: 19:38 <Slick Lazcano - Last Filed: 02/26/19 19:39> <Criselda Stoll - Last Filed: 03/01/19 01:12> Clinical Impression: Bronchitis Disposition: HOME SELF-CARE Condition: Stable Instructions (If sedation given, give patient instructions): Acute Bronchitis (ED) Additional Instructions: Please take prescribed medication as directed. Please follow with primary care. Please return to emergency department if symptoms worsen. Prescriptions: Doxycycline Monohydrate [Monodox] 100 mg PO Q12HR #20 cap predniSONE 50 mg PO DAILY #5 tab Albuterol Inhaler [Ventolin Hfa Inhaler] 1 - 2 puff INHALATION RT-Q6H PRN #1 inhaler PRN Reason: Shortness Of Breath Referrals: None,Stated [Primary Care Provider] - 1-2 days
[2019-02-26] MEDS ORDERED: FAMOTIDINE 20 MG TAB PO STA (18:48)
--- NOTE | 2019-02-26 19:03 | XR ---
EXAMINATION TYPE: XR chest 2V DATE OF EXAM: 02/26/2019 COMPARISON: 11/09/2018 HISTORY: Cough TECHNIQUE: Frontal and lateral views of the chest are obtained. FINDINGS: Heart and mediastinum are normal. Lungs are clear. Diaphragm is normal. Bony thorax appear s normal. Pulmonary vascularity is normal. IMPRESSION: Normal chest. No change.
[2019-02-26 19:10] VITALS: RESP 16
[2019-02-26] MEDS: cefTRIAXone 1,000 MG VIAL (IM USE) IM STA ×2 (19:15→19:19)
[2019-02-26 19:17] VITALS: PULSE 98
== END 2019-02-26 19:44 | disposition home or self-care (01) ==
LOC: EC 17:28
DX: J40 Bronchitis, not specified as acute or chronic (principal); E11.9 Type 2 diabetes mellitus without complications; I10 Essential (primary) hypertension; R59.0 Localized enlarged lymph nodes; F17.200 Nicotine dependence, unspecified, uncomplicated; Z71.6 Tobacco abuse counseling; Z53.20 Procedure and treatment not carried out because of patient's decision for unspecified reasons; Z86.73 Personal history of transient ischemic attack (TIA), and cerebral infarction without residual deficits
CPT/HCPCS: 94640; 71046; 99283; J7512